=== PATIENT | female | born 2000 | race Caucasian/White ===

== ENCOUNTER 2024-12-18 20:38 | Outpatient (REF) | payer OTHER, SELFPAY ==
[2024-12-23 13:12] LABS: Age Gdln ACOG Testing Note (.); IGP, rfx Aptima HPV ASCU Note (.)
== END 2024-12-18 20:39 | disposition home or self-care (01) ==
LOC: LAB 20:38
PROVIDERS: Visit Provider Physician Assistant
DX: Z01.419 Encounter for gynecological examination (general) (routine) without abnormal findings (principal)
CPT/HCPCS: 88175

== ENCOUNTER 2025-02-21 14:31 | Outpatient (OUT) | payer OTHER, SELFPAY | END 2025-02-21 14:32 | disposition home or self-care (01) | PROVIDERS: PCP Nurse Practitioner; Visit Provider Obstetrics & Gynecology | DX: Z01.818 Encounter for other preprocedural examination (principal); N92.1 Excessive and frequent menstruation with irregular cycle; R10.30 Lower abdominal pain, unspecified; D21.9 Benign neoplasm of connective and other soft tissue, unspecified ==

== ENCOUNTER 2025-03-14 08:14 | Day surgery (SDC) | payer OTHER, SELFPAY ==
[2025-02-21 14:38] VITALS: BP 112/74; PULSE 82; TEMP 36.3; O2SAT 97; BMI 27.7
[2025-03-14] VITALS (11 sets, daily range): BP systolic 119–143; BP diastolic 65–86; PULSE 68–116; TEMP 36.1–36.2; O2SAT 97–100; BMI 26.9
[2025-03-14 08:23] LABS: Hematocrit 38.7 % (36.0-48.0); Hemoglobin 12.8 g/dL (12.0-16.0); Immature Granulocytes Abs Auto 0.01 10^3/uL (0.00-0.03); Immature Granulocytes Pct Auto 0.2 % (0.0-0.5); Lymphocytes Absolute Auto 2.8 10^3/uL (1.2-3.8); Mean Corpuscular HGB Conc 33.1 g/dL (29.9-35.2); Mean Corpuscular Hemoglobin 29.6 pg (26.7-34.0); Mean Corpuscular Volume 89.4 fL (81.0-99.0); Platelet Count 233 10^3/uL (150-450); Red Blood Count 4.33 10^6/uL (4.20-5.40); White Blood Count 6.6 10^3/uL (4.0-11.0)
--- NOTE | 2025-03-14 11:23 | PM.ONB ---
Brief Operative Note Date of procedure: 03/14/25 Pre-op diagnosis general: dysmenorrhea, pelvic pain, aub Post-op diagnosis: same as pre-op Procedure: NAME OF PROCEDURE: [d&c hysteroscopy, diagnostic laparoscopy] PROCEDURE: The patient was taken back to the Operating Room where she was prepped and draped in normal sterile fashion after being placed under general anesthesia without difficulty. She was also placed in the dorsal lithotomy position. A weighted speculum was placed in the patient?s vagina. The anterior lip of the cervix was identified and grasped with a single tooth tenaculum. The patient?s uterus was then sounded roughly to [8? ] cm. The patient was then gently dilated using Hegar dilators. The hysteroscope was passed through the patient?s cervix into the uterus. Both ostia were identified. Normal appearing endometrium. No gross evidence of polyps, fibroids or malignancy. The hysteroscope was then removed from the patient's uterus.? At that point, gentle curettage was performed until a gritty texture was noted. The endometrial curettings were sent out to pathology.? The single tooth tenaculum was then removed from the patient's anterior lip of the cervix where excellent hemostasis was noted. A sponge stick was placed into the patient's vagina. Attention was turned to the patient's abdomen, where a small umbilical incision was made. The fascia was tented using Zaid clamps and the fascia was entered sharply. Confirmation of intraabdominal placement of the 10 mm port was confirmed under direct visualization using a laparoscope. The patient's abdomen was then insufflated using CO2 gas with approximately 4 liters. A second port was placed left laterally, this was done under direct visualization with a 5 mm port. Survey of the patient's abdomen demonstrated normal liver and gallbladder. Survey of the patient's pelvic anatomy demonstrated normal appearing rt and lt ovary and tubes as well as normal appearing uterus. No endometrial implants could be noted, no evidence of any pelvic disease was seen, normal appearing pelvic cavity. All instruments were removed from the patient's abdomen. The patient's abdomen was deinsufflated of CO2 gas. The patient tolerated the procedure well. Sponge stick was removed from the patient's vagina. The patient's infraumbilical fascia was closed using #0 Vicryl on a GI needle. The patient's skin was closed laterally and infraumbilically using 4-0 Vicryl. The patient tolerated the procedure well. Sponge, lap and needle counts were correct x 2. The patient was taken to Recovery Room in stable condition. significant pelvic fluid suspicious for ruptures ovarian cyst Anesthesia: MARCIN Surgeon: Ernie Engle [employer]: Ellie Chandler Estimated blood loss (mL): 5 Pathology: none sent Condition: stable Disposition: PACU Urinary Catheter Management Urinary Catheter Management Urethral: Cath placed during this visit: no
[2025-03-14] MEDS: HYDROCODONE/ACET 5-325 MG TABLET 1 TAB PO (12:06)
--- NOTE | 2025-03-14 12:49 | PC.NURSE ---
PATIENT STATES SHE HAS PAIN AND VERBALIZES IT IS BETTER THAN WHAT IT WAS.
== END 2025-03-14 13:30 | disposition home or self-care (01) ==
PROVIDERS: PCP Nurse Practitioner; Visit Provider Obstetrics & Gynecology
PROC: (CPT 840; principal; 2025-03-14 09:35)
DX: N92.1 Excessive and frequent menstruation with irregular cycle (principal); R10.20 Pelvic and perineal pain unspecified side; D25.9 Leiomyoma of uterus, unspecified; G54.0 Brachial plexus disorders; K21.9 Gastro-esophageal reflux disease without esophagitis; E04.1 Nontoxic single thyroid nodule; F41.9 Anxiety disorder, unspecified
CPT/HCPCS: 49320; 58558; 36415; 84702; 85025; 88305; J0131; J1100; J1885; J2250; J2405; J2704; J3010